=== PATIENT | male | born 1995 | race Caucasian/White ===

== ENCOUNTER 2017-05-15 17:19 | Emergency (ER) | payer BC ==
--- NOTE | ~2017-05-15 | ER ---
PATIENT'S NAME: LEIGH ROQUEELIN Charlie [facility] AGE: 21 Y [address] ROOM: [place] [address] LOCATION: [facility] ADMIT DATE: 05/15/2017 ER/Outpatient Report DISCHARGE DATE: 05/15/2017 FAMILY PHYSICIAN: Mariposa Woodard MD ATTENDING PHYSICIAN: Abdifatah Welsh Time of patient arrival: 1719 hours. Time of patient evaluation: 1745 hours. CHIEF COMPLAINT: Sore throat, body aches, fever. HISTORY OF PRESENT ILLNESS: This is a 21-year-old male, who presents to the ER with his mother. He states that he has not been feeling well for approximately 10 days. He states initially it started with a sore throat. He did go to his primary care physician. They did test him for strep and it came back positive. They put him on a Z-Andrew at that time. He states he started to feel better for a few days and then started running a fever again. They went back to the clinic, they re-swabbed him, and it came back positive again for strep throat. So they placed him on Omnicef at that time. The patient states he has continued to feel weak and body aches. He states that he has had no cough, no troubles breathing. They did give him some naproxen this morning with minimal relief of his symptoms. They denied any other problems at this time. Mother does not believe that he has been drinking enough fluids either. ALLERGIES: PENICILLIN. MEDICATIONS: Please see medication list, nurse's notes. PAST MEDICAL HISTORY: Seasonal allergies and stomach ulcers. PAST SURGICAL HISTORY: He has had an upper GI endoscopy. SOCIAL HISTORY: Drinks alcohol rarely. Denies any smoking use. REVIEW OF SYSTEMS: All systems reviewed and were negative with the exception of the those discussed in HPI. PAT[facility] AGE: 21 Y [address] ROOM: [place] [address] LOCATION: [facility] ADMIT DATE: 05/15/2017 ER/Outpatient Report DISCHARGE DATE: 05/15/2017 FAMILY PHYSICIAN: Mariposa Woodard MD ATTENDING PHYSICIAN: Abdifatah Welsh PHYSICAL EXAMINATION: VITAL SIGNS: Height 5 feet 8 inches, stated weight 74.1 kg, taken blood pressure is 119/69, pulse 78, respirations 18, temperature 100.8 degrees tympanically, saturations 96% on room air. Nikolas Coma Score is 15. GENERAL: Alert, calm, well-developed male, in no acute distress. HEENT: Head: Normocephalic. Eyes: Pupils are equal and reactive to light. Ears: TMs display good light reflexes bilaterally. Nose: Turbinates pink with no drainage. Throat is erythematic. He does have tonsillar exudates noted. He does have some postnasal drip as well. He does display moist mucous membranes. Neck: He has no lymphadenopathy noted. He has no fullness to his voice. LUNGS: Clear to auscultation. HEART: Regular rate and rhythm. ABDOMEN: Soft, it is nontender. He has good bowel sounds throughout. No masses were palpated. EXTREMITIES: No clubbing or cyanosis. He has full range of motion of all limbs. LABORATORY DATA: CBC: White count is 2.8, hemoglobin is 17.2, platelets 156, ANC is 1.7. CMS: BUN 21, creatinine 1.3, sodium 137, potassium 4.1. Dubois test was negative. IMPRESSION: 1. Pharyngitis with recent diagnosis of strep throat, is currently on Omnicef. 2. Myalgias. ASSESSMENT AND PLAN: We did start an IV and did give him some IV fluids while he was here in the emergency room and gave him a 1000 mg of Tylenol. We did give him Rocephin 1 g via IV and he did tolerate all of this well. We will dismiss him to home. He needs to continue his antibiotic. He needs to continue to push fluids. Monitor his symptoms closely and he should follow up with his primary care physician on Wednesday for followup care. The patient and patient's mother understand and agree. FILIBERTO RAJPUT PA-C FOR MD FRANCISCA HERNANDEZ/[place]udwin /[id number] d: 05/16/17 1531 t: 06/01/17 1223, OUTPATIENT REPORT
[2017-05-15 18:07] LABS: HEMATOCRIT 51.4 % (37.0-53.0); HEMOGLOBIN 17.2 g/dL (12.0-17.0); MCH 30.7 pg (27.0-34.0); MCHC 33.5 gm/dL (32.0-36.5); MCV 91.6 fl (83.0-98.0); MPV 9.9 fl (9.4-12.4); PLATELET COUNT 156 K/uL (150-450); RBC 5.61 M/uL (4.00-6.00); WBC 2.8 K/uL (4.0-11.0)
[2017-05-15 18:23] LABS: ALBUMIN 3.7 gm/dL (3.5-5.0); ALK PHOS 64 IU/L (33-138); ALT 32 IU/L (12-78); ANION GAP 13.1 (10.0-19.0); AST 30 IU/L (10-40); BLOOD UREA NITROGEN 21 mg/dL (6-24); CALCIUM 8.4 mg/dL (8.5-10.5); CHLORIDE 104 mMol/L (96-110); CO2 24 mMol/L (22-32); CREATININE 1.3 mg/dL (0.6-1.3); ESTIMATED GFR (MDRD EQUATION) > 60; POTASSIUM 4.1 mMol/L (3.7-5.1); SODIUM 137 mMol/L (135-145); TOTAL BILIRUBIN 0.6 mg/dL (0.0-1.5); TOTAL PROTEIN 7.8 g/dL (6.0-8.4)
[2017-05-15 18:50] LABS: ABSOLUTE NEUTROPHIL CT (ANC) 1.7 K/uL (1.4-9.0); BANDED NEUTROPHIL # 0.5 K/uL (0.0-0.1); BANDED NEUTROPHILS % 19 %; LYMPHOCYTE # 0.8 K/uL (0.8-4.0); LYMPHOCYTE % 30 %; MONOCYTE # 0.3 K/uL (0.0-1.0); SEGMENTED NEUTROPHIL # 1.2 K/uL (1.4-9.0); SEGMENTED NEUTROPHIL % 41 %
== END 2017-05-15 19:27 | disposition disaster alternative care site (69) ==
LOC: GMED 17:19
PROVIDERS: Physician Assistant Medical
DX: J02.0 Streptococcal pharyngitis (principal); M79.1 Myalgia; Z88.0 Allergy status to penicillin
CPT/HCPCS: J0696; J7030